=== PATIENT | male | born 1995 | race Caucasian/White ===

== ENCOUNTER 2019-03-27 18:31 | Emergency (ER) | payer SELFPAY ==
[2019-03-27 18:38] VITALS: BP 126/70; PULSE 66; TEMP 98.6; BMI 30.7
--- NOTE | 2019-03-27 18:38 | PDOC ---
Rapid Medical Evaluation Chief Complaint: Chest Pain Time Seen by Provider: 03/27/19 18:33 Medical Evaluation: 03/27/19 18:35 I have performed a brief in person evaluation at triage on this patient. CC: CP HPI: Pt is a 23 YO male who states he has had pain since this morning. Pt denies CV hx, denies illicit drug use. PE: Skin: clear Lungs: clear Heart: RRR MS: Moves all extremities without difficulty Neuro: Alert and oriented Psych: Appropriate affect I have ordered: CV protocol Pt will proceed to the main ED for further evaluation. Discharge Disposition - Diagnosis Chest pain Qualifiers: Chest pain type: unspecified Qualified Code(s): R07.9 - Chest pain, unspecified - Referrals - Patient Instructions - Post Discharge Activity
[2019-03-27 19:15] LABS: BASO % 0.9 % (0-2.0); EOS % 2.7 % (0-4.5); HEMATOCRIT 48.7 % (35.4-49); HEMOGLOBIN 16.6 GM/dL (11.7-16.9); LYMPH % 43.2 % (8-40); MCH 31.5 pg (25.7-33.7); MCHC 34.1 g/dl (32.0-35.9); MEAN CELL VOLUME 92.6 fl (80-96); MEAN PLT VOLUME 10.1 fl (7.5-11.1); MONO % 7.6 % (3.8-10.2); NEUT % 45.6 % (42.8-82.8); PLATELET COUNT 183 K/MM3 (134-434); RBC 5.26 M/mm3 (4.00-5.60); RDW 13.2 % (11.9-15.9); WHITE BLOOD COUNT 7.7 K/mm3 (4.0-10.0)
--- NOTE | 2019-03-27 19:35 | PDOC ---
*Physical Exam - Vital Signs Last Vital Signs Temp Pulse Resp BP Pulse Ox 98.6 F 66 18 126/70 100 03/27/19 18:35 03/27/19 18:35 03/27/19 18:35 03/27/19 18:35 03/27/19 18:35 ED Treatment Course - LABORATORY CBC & Chemistry Diagram: 03/27/19 18:58 03/27/19 22:00 - ADDITIONAL ORDERS Additional order review: 03/27/19 18:58 RBC 5.26 MCV 92.6 MCHC 34.1 RDW 13.2 MPV 10.1 Neutrophils % 45.6 Lymphocytes % 43.2 H Monocytes % 7.6 Eosinophils % 2.7 Basophils % 0.9 Medical Decision Making - Medical Decision Making 03/27/19 19:35 Patient seen by the advanced practice provider under my direct supervision. Ancillary testing reviewed as necessary. I agree with plan as outlined by the advanced practice provider. *DC/Admit/Observation/Transfer Diagnosis at time of Disposition: Dehydration symptoms Chest pain Qualifiers: Chest pain type: unspecified Qualified Code(s): R07.9 - Chest pain, unspecified - Discharge Dispostion Disposition: HOME - Referrals - Patient Instructions Printed Discharge Instructions: DI for Dehydration -- Adult Additional Instructions: drink plenty of fluids. including gatorade start a BRAT ( bananas, rice apples toast) follow up with your doctor return to the ER if symptoms worsen - Post Discharge Activity Forms/Work/School Notes: Back to Work
[2019-03-27 19:37] LABS: INR 0.94 (0.83-1.09); PROTHROMBIN TIME (PATIENT) 11.1 SEC (9.7-13.0)
--- NOTE | 2019-03-27 19:41 | PDOC ---
History of Present Illness - General Chief Complaint: Chest Pain Stated Complaint: CHEST PAIN Time Seen by Provider: 03/27/19 18:33 History Source: Patient - History of Present Illness Initial Comments: 03/27/19 19:38 23 year old male c/o left sided chest pain , feeling shaky x 1 week. denies fever/ chills nausea, vomiting, pleuritic chest pain, dizziness, abdominal pain , weakness no pmhx Past History - Past Medical History Allergies/Adverse Reactions: Allergies Allergy/AdvReac Type Severity Reaction Status Date / Time No Known Allergies Allergy Verified 03/27/19 18:35 Home Medications: Ambulatory Orders NK [No Known Home Medication] 03/27/19 COPD: No - Suicide/Smoking/Psychosocial Hx Smoking History: Never smoked Review of Systems - Review of Systems Able to Perform ROS?: Yes Is the patient limited Albanian proficient: No Constitutional: No: Symptoms Reported, See HPI, Chills, Diaphoresis, Fever, Loss of Appetite, Malaise, Night Sweats, Weakness, Weight Stable, Unintentional Wgt. Loss, Unexplained wgt Loss, Other Respiratory: No: Symptoms reported, See HPI, Cough, Orthopnea, Shortness of Breath, SOB with Exertion, SOB at Rest, Stridor, Wheezing, Productive cough, Hemoptysis, Other Cardiac (ROS): Yes: Chest Pain. No: Symptoms Reported, See HPI, Edema, Irregular Heart Rate, Lightheadedness, Palpitations, Syncope, Chest Tightness, Other ABD/GI: No: Symptoms Reported, See HPI, Abdominal Distended, Abd. Pain w/ defecation, Blood Streaked Bowels, Constipated, Diarrhea, Difficulty Swallowing , Nausea, Poor Appetite, Poor Fluid Intake, Rectal Bleeding, Vomiting, Indigestion, Abdominal cramping, Tarry Stools, Other : No: Symptoms Reported, See HPI, Burning, Dysuria, Discharge, Frequency, Flank Pain, Hematuria, Incontinence, Pain, Urgency, Testicular Mass, Testicular Swelling, Lesions, Testicular Pain, Other *Physical Exam - Vital Signs Last Vital Signs Temp Pulse Resp BP Pulse Ox 98.6 F 66 18 126/70 100 03/27/19 18:35 03/27/19 18:35 03/27/19 18:35 03/27/19 18:35 03/27/19 18:35 - Physical Exam General Appearance: Yes: Appropriately Dressed Respiratory/Chest: positive: Lungs Clear, Normal Breath Sounds Cardiovascular: positive: Regular Rhythm, Regular Rate Gastrointestinal/Abdominal: positive: Normal Bowel Sounds, Soft Musculoskeletal: positive: Normal Inspection Extremity: positive: Normal Capillary Refill, Normal Inspection, Normal Range of Motion Integumentary: positive: Normal Color, Dry, Warm Neurologic: positive: data processor II-XII NML intact, Fully Oriented, Alert, Normal Mood/ Affect ED Treatment Course - LABORATORY CBC & Chemistry Diagram: 03/27/19 18:58 03/27/19 22:00 - ADDITIONAL ORDERS Additional order review: Laboratory Results 03/27/19 03/27/19 03/27/19 22:00 18:58 18:58 PT with INR 11.10 INR 0.94 Sodium 136 135 L Potassium 4.2 5.8 H Chloride 107 103 Carbon Dioxide 23 27 Anion Gap 6 L 4 L BUN 19 H 24 H Creatinine 0.8 1.1 Creat Clearance w eGFR 119.80 82.95 Random Glucose 90 88 Calcium 8.5 9.1 Magnesium 2.2 Total Bilirubin 0.4 AST 55 H ALT 30 Alkaline Phosphatase 65 Creatine Kinase 440 H Creatine Kinase Index 0.4 CK-MB (CK-2) 2.0 Troponin I < 0.02 Total Protein 7.6 Albumin 4.1 03/27/19 18:58 RBC 5.26 MCV 92.6 MCHC 34.1 RDW 13.2 MPV 10.1 Neutrophils % 45.6 Lymphocytes % 43.2 H Monocytes % 7.6 Eosinophils % 2.7 Basophils % 0.9 - Medications Given in the ED: ED Medications Discontinued Medications Generic Name Dose Route Start Last Admin Trade Name Freq PRN Reason Stop Dose Admin Sodium Chloride 1,000 ml 03/27/19 20:15 03/27/19 20:43 Normal Saline - IV 03/27/19 20:16 1,000 ml ONCE ONE Administration Medical Decision Making - Medical Decision Making 03/27/19 19:40 A: chest pain P: labs ekg troponin chest xray 03/27/19 22:46 IVF completed. patient reports feeling better. pending repeat BMP. 11.30bmp improved. will d/c home. *DC/Admit/Observation/Transfer Diagnosis at time of Disposition: Dehydration symptoms Chest pain Qualifiers: Chest pain type: unspecified Qualified Code(s): R07.9 - Chest pain, unspecified - Discharge Dispostion Disposition: HOME - Referrals - Patient Instructions Printed Discharge Instructions: DI for Dehydration -- Adult Additional Instructions: drink plenty of fluids. including gatorade start a BRAT ( bananas, rice apples toast) follow up with your doctor return to the ER if symptoms worsen - Post Discharge Activity Forms/Work/School Notes: Back to Work
[2019-03-27 19:55] LABS: ALBUMIN 4.1 g/dl (3.4-5.0); ALK PHOS 65 U/L (45-117); ANION GAP 4 MMOL/L (8-16); BILIRUBIN,TOTAL 0.4 mg/dL (0.2-1); BLOOD UREA NITROGEN 24 mg/dL (7-18); CALCIUM 9.1 mg/dL (8.5-10.1); CHLORIDE 103 mmol/L (98-107); CO2 27 mmol/L (21-32); CREATININE 1.1 mg/dL (0.55-1.3); GLUCOSE,RANDOM 88 mg/dL (74-106); MAGNESIUM 2.2 mg/dL (1.8-2.4); SGOT/AST 55 U/L (15-37); SGPT/ALT 30 U/L (13-61); SODIUM 135 mmol/L (136-145); TOT PROT 7.6 g/dl (6.4-8.2)
[2019-03-27] MEDS ORDERED: SODIUM CHLORIDE 0.9% 500 ML INFUS.BAG IV ONE (20:15)
[2019-03-27 20:51] LABS: POTASSIUM 5.8 mmol/L (3.5-5.1)
[2019-03-27 23:14] LABS: ANION GAP 6 MMOL/L (8-16); BLOOD UREA NITROGEN 19 mg/dL (7-18); CALCIUM 8.5 mg/dL (8.5-10.1); CHLORIDE 107 mmol/L (98-107); CO2 23 mmol/L (21-32); CREATININE 0.8 mg/dL (0.55-1.3); GLUCOSE,RANDOM 90 mg/dL (74-106); POTASSIUM 4.2 mmol/L (3.5-5.1); SODIUM 136 mmol/L (136-145)
--- NOTE | 2019-03-28 10:32 | EKG ---
Test Reason : Blood Pressure : / mmHG Vent. Rate : 061 BPM Atrial Rate : 061 BPM P-R Int : 160 ms QRS Dur : 108 ms QT Int : 384 ms P-R-T Axes : 058 054 041 degrees QTc Int : 386 ms NORMAL SINUS RHYTHM NORMAL ECG NO PREVIOUS ECGS AVAILABLE Confirmed by SANYA YOUSSEF, SERA ([id number]) on 03/28/2019 10:32:14 AM Referred By: Confirmed By:SERA SEGUNDO MD
== END 2019-03-27 23:58 | disposition home or self-care (01) ==
LOC: JER 18:31
DX: E86.0 Dehydration (principal); R07.9 Chest pain, unspecified
CPT/HCPCS: 36415; 71046-TC-FY; 80048; 80053; 82550; 82553; 83735; 84484; 85025; 85610; 93005; 93010; 99283-25